=== PATIENT | female | born 1945 | race Caucasian/White ===

== ENCOUNTER 2019-06-25 11:30 | Emergency (ER) | payer MEDICARE, SELFPAY ==
[2019-06-25 11:46] VITALS: BP 142/95; PULSE 98; RESP 16; TEMP 37; O2SAT 99
--- NOTE | 2019-06-25 12:18 | ED.SKABFB ---
HPI - Skin/Abscess/Foreign Bdy General Chief complaint: Skin/Abscess/Foreign Body Stated complaint: pos shingles Time Seen by Provider: 06/25/19 11:50 Source: patient Mode of arrival: ambulatory Limitations: no limitations History of Present Illness HPI narrative: Mary Kate Mooney is a 74 yo female with a PMH of hypothyroid , HTN, depression, anxiety, who comes to express care with a rash of L leg that is burning. Started having L skin pain prior to rash eruption- 3 days ago Related Data Home Medications Medication Instructions Recorded Confirmed diazepam 10 mg tablet 10 mg PO DAILY PRN tablet 03/09/19 ibuprofen 06/25/19 Allergies Allergy/AdvReac Type Severity Reaction Status Date / Time Antihistamines - Alkylamine Allergy Unknown Unknown Verified 03/09/19 08:30 Review of Systems Review of Systems: Narrative: CONSTITUTIONAL: Denies fever, chills, sweats. EYES: Denies visual changes, redness, discharge. ENT: Denies rhinorrhea, congestion, sore throat, otalgia. CARDIOVASCULAR: Denies chest pain, palpitations, edema. RESPIRATORY: Denies dyspnea, wheezing, cough GASTROINTESTINAL: Denies abdominal pain, nausea, vomiting, diarrhea. GENITOURINARY: Denies dysuria, hematuria, abnormal discharge SKIN: rash L leg with burning.pain NEUROLOGIC: Denies numbness, or focal weakness. PSYCHIATRIC: Denies anxiety or depression. PMFSH Past Medical History Medical History Hemorrhage following tonsillectomy and adenoidectomy Hypertension Family History Family History Father Parkinson disease Polio Mother Hypertension Social History Social History Smoking status: Current every day smoker Tobacco type: cigarettes Second hand tobacco smoke exposure: No Alcohol intake: current Drinks per week: 5 Substance use: never Substance use type: does not use Comments At time of signature, I agree with nursing past medical, surgical, social and family history. There is no relevant family history pertinent to the presenting complaint. Exam Narrative: Exam Narrative: GENERAL: This is a well-nourished, well-developed patient, in mild distress. HEAD: normocephalic, atraumatic. EYES: Sclera clear/white. Vision is grossly intact. EARS: External ears normal. Hearing grossly intact. NOSE: External nose normal with no obvious nasal discharge, nares without redness, no rhinorrhea. THROAT: Mucous membranes moist, NECK: Neck supple, non-tender w CARDIOVASCULAR: Regular rate and rhythm without murmurs, gallops, or rubs. RESPIRATORY: Clear to auscultation. Breath sounds equal bilaterally. No wheezes, rales, or rhonchi. GASTROINTESTINAL: Abdomen soft, non-tender, SKIN: warm, intact with lesions red areas with didier and burning. NEURO: awake, alert, and oriented to person, place and time. There were no obvious focal neurologic abnormalities. Steady gait EXTREMITIES: Normal range of motion. BACK: Nontender without deformity or crepitance. Course Course Emergency Course: started on valtrex Vital Signs Vital signs: Vital Signs Temperature 98.6 F 06/25/19 11:46 Pulse Rate 98 06/25/19 11:46 Respiratory Rate 16 06/25/19 11:46 Blood Pressure 142/95 H 06/25/19 11:46 Pulse Oximetry 99 06/25/19 11:46 Temperature 98.6 F 06/25/19 11:46 Pulse Rate 98 06/25/19 11:46 Respiratory Rate 16 06/25/19 11:46 Blood Pressure 142/95 H 06/25/19 11:46 Pulse Oximetry 99 06/25/19 11:46 MDM - Skin/Abscess/Foreign Bdy Differential Diagnosis Differential diagnosis: Likely herpes zoster, cellulitis, eczema, insect bites and contact dermatitis Discharge Plan Discharge Clinical Impression: Depression Qualifiers: Depression Type: reactive depression Qualified Code(s): F32.9 - Major depressive disorder, single episode, unspecified Herpes zoster
== END 2019-06-25 12:44 | disposition home or self-care (01) ==
PROVIDERS: Emergency Provider Nurse Practitioner; PCP Family Medicine
DX: B02.9 Zoster without complications (principal); F32.9 Major depressive disorder, single episode, unspecified; F17.210 Nicotine dependence, cigarettes, uncomplicated; I10 Essential (primary) hypertension; E03.9 Hypothyroidism, unspecified; F41.9 Anxiety disorder, unspecified
CPT/HCPCS: 99213; G0463

== ENCOUNTER 2020-03-28 22:57 | Emergency (ER) | payer MEDICARE, SELFPAY ==
[2020-03-28 23:17] VITALS: BP 163/91; PULSE 85; RESP 14; TEMP 36.7; O2SAT 100
--- NOTE | 2020-03-28 23:26 | ED.EPISTAXIS ---
HPI - Epistaxis General Chief complaint: Epistaxis Stated complaint: nose bleed Time Seen by Provider: 03/28/20 23:10 Source: patient Mode of arrival: ambulatory Limitations: no limitations History of Present Illness HPI Narrative: This is a 75 year old female that presents to the ER for nosebleed x 1.5 hours. Reports nosebleed from the right nare. Reports she had one a couple of days ago as well. She is not on any blood thinners. Denies fever or trauma. Related Data Home Medications Medication Instructions Recorded Confirmed diazepam 10 mg tablet 10 mg PO DAILY PRN tablet 03/09/19 ibuprofen 06/25/19 Allergies Allergy/AdvReac Type Severity Reaction Status Date / Time Antihistamines - Alkylamine Allergy Unknown Unknown Verified 03/09/19 08:30 Review of Systems Review of Systems: Narrative: CONSTITUTIONAL: Denies fever ENT: Reports epistaxis All systems reviewed & are unremarkable except as noted in HPI and below PMFSH Past Medical History Medical History (Updated 03/29/20 @ 00:51 by Zee Thomas PA-C) Hemorrhage following tonsillectomy and adenoidectomy Hypertension Family History Family History Father Parkinson disease Polio Mother Hypertension Social History Social History Smoking status: Current every day smoker Tobacco type: cigarettes Second hand tobacco smoke exposure: No Alcohol intake: current Drinks per week: 5 Substance use: never Substance use type: does not use Gender identity (if verbalized by the patient): Female Exam Narrative: Exam Narrative: GENERAL: Well-appearing, well-nourished, and in no acute distress. HEAD: Normocephalic, atraumatic. EYES: EOMI. ENT: No active nasal bleeding noted. Dried blood at the base of the nose. Mucous membranes moist. Oropharynx without tonsillar hypertrophy exudate or other lesions. CHEST: Airway patent EXTREMITIES: Normal range of motion. No edema. SKIN: Warm, dry, no rash. NEURO: No focal deficits. Alert and oriented x3. PSYCH: Normal mood and affect Course Vital Signs Vital signs: Vital Signs Temperature 98.0 F 03/28/20 23:17 Pulse Rate 85 03/28/20 23:17 Respiratory Rate 14 03/28/20 23:17 Blood Pressure 163/91 H 03/28/20 23:17 Pulse Oximetry 100 03/28/20 23:17 Temperature 98.0 F 03/28/20 23:17 Pulse Rate 85 03/28/20 23:17 Respiratory Rate 14 03/28/20 23:17 Blood Pressure 163/91 H 03/28/20 23:17 Pulse Oximetry 100 03/28/20 23:17 Procedures Epistaxis Control left: Epistaxis Control Date: 03/29/20 Nose Prepped With: phenylephrine Clots Removed by: blowing nose Cautery Used: none Device Inserted: other (cotton ball soaked in phenylephrine) Patient Tolerated Procedure: well and no complications MDM - Epistaxis MDM Narrative Medical decision making narrative: Patient presents the emergency department for intermittent nosebleeds over the last couple of days. No active oozing on exam. Did have some dried blood in the nares. Tiago-Synephrine spray applied on cotton swab to the nare with continued control of bleeding. Patient's hemoglobin is 12.6. Patient is stable and felt appropriate for further outpatient evaluation. She was given warnings to return to the ER Lab Data Attestation: I reviewed the patient's lab results. Result diagrams: 03/28/20 23:48 Labs: Lab Results 03/28/20 03/28/20 Range/Units 23:47 23:48 Hgb 12.6 (12.0-15.0) g/dL Hct 37.4 (37.0-47.0) % PT 12.7 (11.1-14.7) Seconds INR 0.9 APTT 26.7 (22.3-36.8) SECONDS Critical Care Time Critical Care Time Critical Care Time: No Discharge Plan Discharge Clinical Impression: Epistaxis Patient Disposition: Home, Self-Care Condition: Stable Instructions: Nosebleed (ED) Additional Instructions: Return to the ER
[2020-03-28 23:54] LABS: Hematocrit 37.4 % (37.0-47.0); Hemoglobin 12.6 g/dL (12.0-15.0)
[2020-03-29 00:26] LABS: INR 0.9; Prothrombin Time 12.7 Seconds (11.1-14.7)
[2020-03-29 00:27] LABS: Partial Thromboplastin Time 26.7 SECONDS (22.3-36.8)
[2020-03-29 01:00] VITALS: BP 155/88; PULSE 78; RESP 19; O2SAT 99
== END 2020-03-29 01:00 | disposition home or self-care (01) ==
PROVIDERS: Physician Assistant; Emergency Provider Emergency Medicine
DX: R04.0 Epistaxis (principal); I10 Essential (primary) hypertension; F17.210 Nicotine dependence, cigarettes, uncomplicated
CPT/HCPCS: 30901; 36415; 85014; 85018; 85610; 85730; 99283; A9270

== ENCOUNTER 2020-03-29 12:18 | Emergency (ER) | payer MEDICARE, SELFPAY ==
[2020-03-29 12:34] VITALS: BP 138/74; PULSE 97; RESP 16; TEMP 36.8; O2SAT 96
--- NOTE | 2020-03-29 13:58 | ED.EPISTAXIS ---
HPI - Epistaxis General Chief complaint: Epistaxis Stated complaint: nosebleed, seen yesterday Time Seen by Provider: 03/29/20 12:39 Source: patient Mode of arrival: ambulatory Limitations: no limitations History of Present Illness HPI Narrative: 75-year-old with a history of hypertension, hypothyroidism, anxiety disorder here with complaints of bleeding from the left nare since yesterday. Patient states that she was seen here in the hospital ER was given Tiago-Synephrine nasal spray which helped with the bleeding however again since morning she started bleeding again. She states that she used dry heat and also smokes. complaint: epistaxis Location: left nostril Onset (ago): day(s) (1) Duration: constant Related Data Home Medications Medication Instructions Recorded Confirmed diazepam 10 mg tablet 10 mg PO DAILY PRN tablet 03/09/19 ibuprofen 06/25/19 Allergies Allergy/AdvReac Type Severity Reaction Status Date / Time Antihistamines - Alkylamine Allergy Unknown Unknown Verified 03/09/19 08:30 Review of Systems Review of Systems: All systems reviewed & are unremarkable except as noted in HPI and below Constitutional: Constitutional: Reports no additional constitutional complaints Eyes: Eyes: Reports no additional eye complaints ENT: Reports as per HPI Cardiovascular: Cardiovascular: Reports no additional cardiovascular complaints Respiratory: Respiratory: Reports no additional respiratory complaints Gastrointestinal: Gastrointestinal: Reports no additional gastrointestinal complaints PMFSH Past Medical History Medical History Hemorrhage following tonsillectomy and adenoidectomy Hypertension Family History Family History Father Parkinson disease Polio Mother Hypertension Social History Social History Smoking status: Current every day smoker Tobacco type: cigarettes Second hand tobacco smoke exposure: No Alcohol intake: current Drinks per week: 5 Substance use: never Substance use type: does not use Gender identity (if verbalized by the patient): Female Exam Narrative: Exam Narrative: GENERAL: Well-appearing, well-nourished, and in no acute distress,anxious HEAD: Normocephalic, atraumatic. EYES: PERRLA and EOMI. ENT: Active bleeding from the left nares , mouth is bloody . NECK: Supple. CHEST: Clear to auscultation. No respiratory distress. HEART: Regular rate and rhythm. No murmur heard. Normal peripheral pulses.. EXTREMITIES: Normal range of motion. No edema. SKIN: Warm, dry, no rash. NEURO: No focal deficits. Alert and oriented x3. PSYCH: Normal mood and affect. Course Vital Signs Vital signs: Vital Signs Temperature 36.8 C 03/29/20 12:34 Pulse Rate 97 03/29/20 12:34 Respiratory Rate 16 03/29/20 12:34 Blood Pressure 138/74 03/29/20 12:34 Pulse Oximetry 96 03/29/20 12:34 Temperature 36.8 C 03/29/20 12:34 Pulse Rate 97 03/29/20 12:34 Respiratory Rate 16 03/29/20 12:34 Blood Pressure 138/74 03/29/20 12:34 Pulse Oximetry 96 03/29/20 12:34 Procedures Epistaxis Control left: Epistaxis Control Date: 03/29/20 Direct Inspection: yes Cautery Used: none Device Inserted: nasal tampon Device Size: 55 Patient Tolerated Procedure: well Epistaxis Control Narrative: bleeding stopped , rechecked in 30 min no further bleeding. MDM - Epistaxis Differential Diagnosis Differential diagnosis: Likely anterior epistaxis and posterior epistaxis Medical Records Attestation: I reviewed the patient's medical records. Lab Data Attestation: I reviewed the patient's lab results. Discharge Plan Discharge Clinical Impression: Epistaxis Patient Disposition: Home, Self-Care Condition: Stable Instructions: Antibiotic Form, Nosebleed
== END 2020-03-29 14:28 | disposition home or self-care (01) ==
PROVIDERS: Emergency Provider Family Medicine
DX: R04.0 Epistaxis (principal); F17.210 Nicotine dependence, cigarettes, uncomplicated; I10 Essential (primary) hypertension; F41.9 Anxiety disorder, unspecified
CPT/HCPCS: 30901; 99282

== ENCOUNTER 2020-03-29 22:40 | Emergency (ER) | payer MEDICARE, SELFPAY ==
[2020-03-29 22:42] VITALS: BP 169/90; PULSE 105; RESP 18; TEMP 36.9; O2SAT 99
--- NOTE | 2020-03-29 23:53 | ED.GENADULT ---
HPI - General Adult General Chief complaint: Epistaxis Stated complaint: nose bleed Time Seen by Provider: 03/29/20 22:59 History of Present Illness HPI narrative: Patient is a 75-year-old female who presents the emergency department with chief complaint of epistaxis. Patient reports that she was seen in the emergency department 2 other times and had a anterior packing done in the left nostril. Patient states she started sneezing at home and the pack moved forward and now she has blood leaking out of her right nostril. Patient states she is had several clots denies any other injury reports she has an appointment on with ear nose and throat. Related Data Home Medications Medication Instructions Recorded Confirmed diazepam 10 mg tablet 10 mg PO DAILY PRN tablet 03/09/19 ibuprofen 06/25/19 Allergies Allergy/AdvReac Type Severity Reaction Status Date / Time Antihistamines - Alkylamine Allergy Unknown Unknown Verified 03/09/19 08:30 Review of Systems Review of Systems: Narrative: A 10 system review of systems was completed on the patient and is negative except for what is stated in the HPI. Nursing and ancillary documentation was reviewed. [facility] Past Medical History Medical History (Updated 03/29/20 @ 23:58 by Geovany Figueroa MD) Hemorrhage following tonsillectomy and adenoidectomy Hypertension Family History Family History Father Parkinson disease Polio Mother Hypertension Social History Social History Smoking status: Current every day smoker Tobacco type: cigarettes Second hand tobacco smoke exposure: No Alcohol intake: current Drinks per week: 5 Substance use: never Substance use type: does not use Gender identity (if verbalized by the patient): Female Exam Narrative: Exam Narrative: GENERAL: Well-appearing, well-nourished, and in no acute distress. HEAD: Normocephalic, atraumatic. EYES: PERRLA and EOMI. ENT: Nares clear, no rhinorrhea there is a 5.5 cm anterior pack in the left nostril that is protruding out of the nostril. There is slight blood out of the right nostril. Mucous membranes moist. NECK: Supple. CHEST: Clear to auscultation. No respiratory distress. HEART: Regular rate and rhythm. No murmur heard. Normal peripheral pulses. ABDOMEN: Soft, nontender, nondistended, normal active bowel sounds. EXTREMITIES: Normal range of motion. No edema. SKIN: Warm, dry, no rash. NEURO: No focal deficits. Alert and oriented x3. PSYCH: Normal mood and affect. Course Vital Signs Vital signs: Vital Signs Temperature 36.9 C 03/29/20 22:42 Pulse Rate 105 H 03/29/20 22:42 Respiratory Rate 18 03/29/20 22:42 Blood Pressure 169/90 H 03/29/20 22:42 Pulse Oximetry 99 03/29/20 22:42 Temperature 36.9 C 03/29/20 22:42 Pulse Rate 105 H 03/29/20 22:42 Respiratory Rate 18 03/29/20 22:42 Blood Pressure 169/90 H 03/29/20 22:42 Pulse Oximetry 99 03/29/20 22:42 Procedures Epistaxis Control left: Epistaxis Control Date: 03/29/20 Epistaxis Control Time: 22:56 Time Out Performed: Yes Direct Inspection: yes Clots Removed by: blowing nose Cautery Used: none Device Inserted: hemostatic balloon Device Size: 75 Patient Tolerated Procedure: well Epistaxis Control Narrative: Be 5.5 cm anterior pack was removed the patient had clots expressed out of both nostrils a 7.5 anterior posterior pack was applied to the left nostril and hemostasis was achieved. Medical Decision Making Vital Signs Vital Signs: Vital Signs Temperature 36.9 C 03/29/20 22:42 Pulse Rate 105 H 03/29/20 22:42 Respiratory Rate 18 03/29/20 22:42 Blood Pressure 169/90 H 03/29/20 22:42 Pulse Oximetry 99 03/29/20 22:42 Temperature 36.9 C 03/29/20 22:42 Pulse Rate 105 H
[2020-03-30 00:27] VITALS: BP 158/94; PULSE 84; RESP 18; TEMP 36.7; O2SAT 97
== END 2020-03-30 00:28 | disposition home or self-care (01) ==
PROVIDERS: Emergency Provider Emergency Medicine
DX: R04.0 Epistaxis (principal); F17.210 Nicotine dependence, cigarettes, uncomplicated; I10 Essential (primary) hypertension
CPT/HCPCS: 30901; 30903; 99283

== ENCOUNTER 2022-09-03 13:32 | Emergency (ER) | payer MEDICARE, SELFPAY ==
--- NOTE | 2022-09-03 13:39 | ED.DENTAL ---
HPI - Dental/Oral General Chief complaint: Dental/Oral Stated complaint: Abscess in mouth Time Seen by Provider: 09/03/22 13:33 Source: patient Mode of arrival: ambulatory Limitations: no limitations History of Present Illness HPI Narrative: Mary Kate is a 77-year-old female patient presenting to clinic today with complaints of a possible dental abscess that began on Saturday. She reports she 1st noticed it Saturday evening with some swelling and tenderness to the left upper posterior molars. Denies any fever or chills. Contacted a new dentist and has appointment next week. She denies any fever or chills. Related Data Home Medications Medication Instructions Recorded Confirmed calcium citrate 315 mg 1 tablet PO DAILY 05/16/21 05/16/21 calcium-vitamin D3 6.25 mcg (250 unit) tablet (Citracal + Vitamin D Maximum) [id number] ac 400 tablet PO 05/16/21 05/16/21 mcg-calcium carb 500 mg-vit K1 20 mcg tablet (Women's 50 Plus Multivitamin) Allergies Allergy/AdvReac Type Severity Reaction Status Date / Time Antihistamines - Alkylamine AdvReac Severe lethargy, Verified 09/03/22 13:44 agitated Review of Systems Review of Systems: Pertinent positives per HPI. Patient denies any fever, chills, rash, headache, visual changes, dizziness, cough, runny nose, sore throat, shortness of breath, chest pain, palpitations, nausea, vomiting, diarrhea, constipation, abdominal pain, or any urinary issues. PMFSH Past Medical History Medical History Anxiety Colon cancer screening declined Depression Hemorrhage following tonsillectomy and adenoidectomy Hypertension Hypothyroid Left-sided epistaxis Mammogram declined URI (upper respiratory infection) Family History Family History Father Parkinson disease Polio Mother Hypertension Social History Social History Social History: Lives at home alone, daughter is local Smoking packs per day: 1 Smoking cigarettes per day: 20.0 Smoking status: Current every day smoker Tobacco type: cigarettes Second hand tobacco smoke exposure: No Alcohol intake: current Drinks per week: 5 Substance use: never Substance use type: does not use Lack of Transportation: No Lack of Food: Never True Current Housing: I Have Housing Concerned About Future Housing: No Difficulty Paying Gas/Electric Bills: No Difficulty Paying for Meds: No Currently Unemployed: No Education: Associate Degree Difficulty w/ Childcare or Family Care: No Living arrangements: alone Gender identity (if verbalized by the patient): Female Comments At the time of my signature, I reviewed and agree with the nursing past medical, surgical, social, and family history. There is no relevant family history pertinent to the patient complaint. Exam Narrative: General: Well-developed, well nourished, in no apparent distress Head: Normocephalic, atraumatic Eyes: Pupils equally round and reactive to light bilaterally, EOM intact, sclera and conjunctive clear, no discharge, lids normal Ears: TMs intact and clear, ear canals clear, no drainage, grossly hearing normal. Nose: Nares patent, no discharge, no inflammation, no sinus tenderness. Mouth: Oropharynx without lesions or masses, poor dentition, MMM. Dental/gum abscess to the left posterior molars and swelling/firm lesion to the top of the roof of the mouth Neck: Supple, trachea midline, no enlargement of anterior or posterior cervical nodes, no thyroid masses or goiter palpable. Cardio: Regular rate and rhythm, s1 and s2 normal, no murmur appreciated. Resp: Clear to auscultation bilaterally anteriorly and posteriorly, no rhonchi, rales, wheezing or rubs Course Course Emergency Course: Portions of this record may have
[2022-09-03 13:44] VITALS: BP 150/94; PULSE 87; RESP 12; TEMP 36.3; O2SAT 100
== END 2022-09-03 13:58 | disposition home or self-care (01) ==
PROVIDERS: Emergency Provider Nurse Practitioner Family; PCP Family Medicine
DX: K04.7 Periapical abscess without sinus (principal); F17.210 Nicotine dependence, cigarettes, uncomplicated; I10 Essential (primary) hypertension; E03.9 Hypothyroidism, unspecified
CPT/HCPCS: 99213; G0463